=== PATIENT | male | born 1950 | race African-American/Black ===

== ENCOUNTER 2018-06-13 20:21 | Emergency (ER) | payer OTHER, MEDICARE ==
[2018-06-13 20:26] VITALS: BP 161/72
[2018-06-13] MEDS ORDERED: ACETAMINOPHEN 325 MG TABLET PO ONE (23:11)
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
== END 2018-06-13 23:20 | disposition home or self-care (01) ==
LOC: ER 20:21
DX: M54.2 Cervicalgia (principal); M79.10 Myalgia, unspecified site; V87.7XXA Person injured in collision between other specified motor vehicles (traffic), initial encounter; Z79.01 Long term (current) use of anticoagulants; I10 Essential (primary) hypertension; E11.9 Type 2 diabetes mellitus without complications
CPT/HCPCS: 99283

== ENCOUNTER 2018-06-17 20:48 | Emergency (ER) | payer OTHER, MEDICARE ==
[2018-06-17 20:59] VITALS: BP 167/64
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
== END 2018-06-17 23:38 | disposition home or self-care (01) ==
LOC: ER 20:48
DX: S16.1XXA Strain of muscle, fascia and tendon at neck level, initial encounter (principal); S46.911A Strain of unspecified muscle, fascia and tendon at shoulder and upper arm level, right arm, initial encounter; S76.011A Strain of muscle, fascia and tendon of right hip, initial encounter; S23.3XXA Sprain of ligaments of thoracic spine, initial encounter; V87.7XXA Person injured in collision between other specified motor vehicles (traffic), initial encounter; Z87.891 Personal history of nicotine dependence; I10 Essential (primary) hypertension; E11.9 Type 2 diabetes mellitus without complications
CPT/HCPCS: 99284